=== PATIENT | male | born 1985 | race Caucasian/White ===

== ENCOUNTER 2017-05-31 08:52 | Day surgery (SDC) | payer BC ==
[~2017-05-31 08:52] MED LIST: Acetaminophen/HYDROcodone 325-10 MG Tab PO PRN; Bupivacaine 0.25% 10 ML SDV ONE; Ketorolac 10 MG Tab PO PRN; Lactated Ringers 1,000 ML IV SCH; ceFAZolin 2 GM in Premix Bag 1 BAG IV SCH
[2017-05-31] MEDS ORDERED: Ketorolac 30 MG/ML SDV ONE ×2 (09:16→09:19)
[2017-05-31] MEDS ORDERED: Propofol 200 MG/20 ML SDV ONE ×3 (09:18→13:55)
[2017-05-31] MEDS ORDERED: Midazolam 1 MG/ML 2 ML SDV ONE (09:18)
[2017-05-31] MEDS ORDERED: Lidocaine 2% 5 ML SDV ONE (09:18)
[2017-05-31] MEDS ORDERED: fentaNYL 100 MCG/2 ML SDV ONE (09:18)
[2017-05-31] MEDS ORDERED: Ondansetron 4 MG/2 ML SDV ONE (09:19)
[2017-05-31] MEDS ORDERED: HYDROmorphone 2 MG/ML Syringe ONE (09:27)
--- NOTE | 2017-05-31 09:49 | PCM.PREANE ---
Preanesthetic Assessment - Anesthesia/Transfusion/Family Hx Anesthesia History: Prior Anesthesia Without Reaction Family History of Anesthesia Reaction: No Transfusion History: No Prior Transfusion(s) - Review of Systems General: No Symptoms Pulmonary: No Symptoms Cardiovascular: No Symptoms Gastrointestinal: No Symptoms Neurological: No Symptoms Other: Reports: None - Physical Assessment O2 Sat by Pulse Oximetry: 98 Respiratory Rate: 16 Vital Signs: Last Vital Signs Temp 36.4 C 05/31/17 09:14 Pulse 48 L 05/31/17 09:14 Resp 16 05/31/17 09:14 BP 118/69 05/31/17 09:14 Pulse Ox 98 05/31/17 09:14 Height: 1.73 m Weight: 85.275 kg ASA Class: 1 Mental Status: Alert & Oriented x3 Airway Class: Mallampati = 1 Dentition: Reports: Normal Dentition ROM/Head Extension: Full Lungs: Clear to Auscultation, Normal Respiratory Effort Cardiovascular: Regular Rate, Regular Rhythm - Allergies Allergies/Adverse Reactions: Allergies Allergy/AdvReac Type Severity Reaction Status Date / Time No Known Allergies Allergy Verified 05/26/17 14:02 - Anesthesia Plan Pre-Op Medication Ordered: None - Acknowledgements Anesthesia Type Planned: General Anesthesia Pt an Appropriate Candidate for the Planned Anesthesia: Yes Alternatives and Risks of Anesthesia Discussed w Pt/Guardian: Yes Pt/Guardian Understands and Agrees with Anesthesia Plan: Yes Additional Comments: options of spinal with sedation and GA discussed with patient. Pt prefers GA. PreAnesthesia Questionnaire HEENT History: Reports: None Musculoskeletal History: Reports: Fracture Other Musculoskeletal History: hx of fx fingers - Past Surgical History Head Surgeries/Procedures: Reports: None HEENT Surgical History: Reports: Tonsillectomy Musculoskeletal Surgical History: Reports: Arthroscopic Knee Other Musculoskeletal Surgeries/Procedures:: right ACL repair - SUBSTANCE USE Smoking Status *Q: Never Smoker Recreational Drug Use History: No - HOME MEDS Home Medications: Home Meds . [No Known Home Meds] 05/25/17 [History] - CURRENT (IN HOUSE) MEDS Current Meds: Current Medications Hydrocodone Bitart/Acetaminophen (Remus 325-10 Mg) 1 - 2 tab PO Q4H PRN PRN Reason: Pain Lactated Ringer's (Ringers, Lactated) 1,000 mls @ 100 mls/hr IV ASDIRECTED [facility] Last Admin: 05/31/17 09:18 Dose: 100 mls/hr Cefazolin Sodium/Dextrose 2 gm (/ Premix) 50 mls @ 100 mls/hr IV ONCALL [facility] Ketorolac Tromethamine (Toradol) 10 mg PO Q6H PRN PRN Reason: Pain Stop: 06/05/17 08:01 Discontinued Medications Bupivacaine HCl (Sensorcaine-Mpf 0.25%) Confirm Administered Dose 10 ml .ROUTE .STK-MED ONE Stop: 05/31/17 07:47 Fentanyl (Sublimaze) Confirm Administered Dose 300 mcg .ROUTE .STK-MED ONE Stop: 05/31/17 09:19 Hydromorphone HCl (Dilaudid) Confirm Administered Dose 2 mg .ROUTE .STK-MED ONE Stop: 05/31/17 09:28 Ketorolac Tromethamine (Toradol) Confirm Administered Dose 30 mg .ROUTE .STK- MED ONE Stop: 05/31/17 09:17 Ketorolac Tromethamine (Toradol) Confirm Administered Dose 30 mg .ROUTE .STK- MED ONE Stop: 05/31/17 09:20 Lidocaine (Xylocaine-Mpf 2%) Confirm Administered Dose 10 ml .ROUTE .STK-MED ONE Stop: 05/31/17 09:19 Midazolam HCl (Versed 1 Mg/Ml) Confirm Administered Dose 2 mg .ROUTE .STK-MED ONE Stop: 05/31/17 09:19 Ondansetron HCl (Zofran) Confirm Administered Dose 4 mg .ROUTE .STK-MED ONE Stop: 05/31/17 09:20 Propofol (Diprivan 20 Ml) Confirm Administered Dose 400 mg .ROUTE .STK-MED ONE Stop: 05/31/17 09:19
--- NOTE | 2017-05-31 10:14 | PCM.POSTAN ---
POST ANESTHESIA ASSESSMENT - MENTAL STATUS Mental Status: Alert, Oriented Free Text/Narrative:: Awakens to verbal but drifts back to sleep - VITAL SIGNS Pulse Rate: 48 SaO2: 98 Resp Rate: 16 Blood Pressure: 118/69 - RESPIRATORY Respiratory Status: Respiratory Rate WNL, Airway Patent, O2 Saturation Stable - CARDIOVASCULAR CV Status: Pulse Rate WNL, Blood Pressure Stable - GASTROINTESTINAL GI Status: No Symptoms - PAIN Pain Score: 0 - POST OP HYDRATION Hydration Status: Adequate & Stable
[2017-05-31] MEDS ORDERED: HYDROmorphone 2 MG/ML Syringe IVPUSH ONE (13:06)
[2017-05-31] MEDS ORDERED: fentaNYL 100 MCG/2 ML SDV IVPUSH PRN (13:06)
--- NOTE | 2017-05-31 13:40 | PCM.OPNOTE ---
- General Post-Op/Procedure Note Date of Surgery/Procedure: 05/31/17 Operative Procedure(s): L knee arthroscopy with medial meniscus repair and ACL reconstruction using allograft Post-Op Diagnosis: L knee medial meniscus tear, L knee ACL tear Anesthesia Technique: General ET Tube Primary Surgeon: Maxine Vitale Communications Assistant: Anita Clemens in mLs: 10 Condition: Good Free Text/Narrative:: tt=[id number] min #[id number]
[2017-05-31] MEDS ORDERED: Lidocaine 1% 20 ML MDV ONE (13:59)
[2017-05-31] MEDS ORDERED: Meperidine PF 50 MG/ML Syringe IVPUSH ONE (14:22)
[2017-05-31] MEDS ORDERED: Meperidine PF 50 MG/ML Syringe ONE (14:22)
--- NOTE | 2017-05-31 14:57 | PCM.POSTAN ---
POST ANESTHESIA ASSESSMENT - MENTAL STATUS Mental Status: Alert, Oriented - RESPIRATORY Respiratory Status: Respiratory Rate WNL, Airway Patent, O2 Saturation Stable - CARDIOVASCULAR CV Status: Pulse Rate WNL, Blood Pressure Stable - GASTROINTESTINAL GI Status: No Symptoms - PAIN Pain Score: 3 - POST OP HYDRATION Hydration Status: Adequate & Stable - OBSERVATIONS Free Text/Narrative:: no anesthesia problems
[2017-05-31 15:33] VITALS: BP 116/62
--- NOTE | 2017-05-31 15:53 | OR ---
SURGEON: Maxine Vitale MD DATE OF PROCEDURE: 05/31/2017 PREOPERATIVE DIAGNOSES: 1. Left knee medial meniscus tear. 2. Left knee anterior cruciate ligament tear. POSTOPERATIVE DIAGNOSES: 1. Left knee medial meniscus tear. 2. Left knee anterior cruciate ligament tear. PROCEDURES: Left knee arthroscopy with: 1. Medial meniscus repair. 2. Arthroscopically aided anterior cruciate ligament reconstruction using allograft. COMMUNITY FUNDRAISER: Anita Clemens PA-C. ANESTHESIA: General. ESTIMATED BLOOD LOSS: 10 mL. TOURNIQUET TIME: COMPLICATIONS: None. DVT PROPHYLAXIS: PAS boot to the nonoperative leg. IMPLANTS USED: [employer] FirstPass meniscal repair and [employer] TightRope ACL fixation system. BRIEF HISTORY: Jacobo is a 31-year-old male, who sustained an injury to his left knee. An MRI did confirm a tear of the ACL and medial meniscus. I discussed both surgical and conservative treatment options with the patient. He elected to proceed with surgical treatment. The risks and goals of procedure were discussed with the patient and were documented preoperatively. He agreed to proceed. DESCRIPTION OF PROCEDURE: The patient was properly identified and brought to the operating room. He was transferred from the OR cart and placed on the operating room table in supine position. General anesthesia was administered. After adequate anesthesia was obtained, a well-padded tourniquet was applied to the left lower extremity. The left lower extremity was then prepped in standard fashion using ChloraPrep solution. It was then sterilely draped. A time-out was performed to ensure correct site and procedure. Preoperative antibiotics were given. The surgical site had been marked preoperatively. An Esmarch was used to exsanguinate the left lower extremity and the tourniquet was inflated to 250 mmHg. Anterior drawer and pivot-shift test were both positive. A lateral portal arthrotomy was established. Blunt trocar and cannula were introduced into the suprapatellar pouch. Camera, inflow, and outflow were assembled. No significant synovitis was noted. The patellofemoral joint was inspected. The joint surfaces appeared pristine. The patella appeared to track centrally. I then extended down the lateral and medial gutter. No loose bodies were identified. I then entered the medial compartment. A medial portal arthrotomy was established. A probe was then inserted. The meniscus was probed. He was found to have a small full-thickness tear through the posterior horn of the medial meniscus. This appeared unstable. This was in the red-white zone. The edges appeared smooth and I elected to proceed with meniscus repair. A meniscal rasp was then used to roughen the edges. The [employer] FirstPass suture repair system was then utilized. Two passes were made into the repair and the knot was cinched down. The suture did break. I used a meniscal biter to cut the suture and this removed the remainder of the stitch without difficulty. The meniscus was then probed and was found to be stable. The joint surfaces on the medial compartment showed no signs of degenerative findings. I then entered the notch. The ACL was visualized. This appeared to be scarred to the PCL. There was no attachment to the lateral femoral condyle. The PCL appeared intact. I then entered the lateral compartment. 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 The meniscus was probed and found to be stable. No tears were appreciated. The lateral femoral condyle showed no significant degenerative findings. I then turned my attention back to the ACL. A portion that was scarred to the PCL was resected. I did keep the insertion point intact to allow for proprioception. The lateral condyle wall was then cleared of soft tissue. A afia was used to perform a small notchplasty to assist with visualization. A large curette was used posteriorly to confirm that we were posterior enough. We choose to make our tibial tunnel first. The tibial positioning guide was placed. An incision was made over the medial aspect of the tibia and the subcutaneous tissues were dissected down to the bone. Periosteal window was elevated. Once we felt we had adequate tunnel length and placement, a guide pin was inserted. This came out just even with the anterior horn of the lateral meniscus and was approximately 7 mm anterior to the PCL. I felt that this was acceptable placement. The graft had been prepared in a standard fashion preoperatively. This did measure 10 mm in the tibial portion and 9.5 mm in the femoral portion. A 10 mm reamer was then placed over the guide pin and the tibial tunnel was removed without difficulty. A shaver was then used to remove any loose fragments of bone. A rasp was also used to smooth the posterior edge of the tibial tunnel. A plug was then placed to prevent extravasation of the fluid from the joint. I then turned my attention to the lateral femoral condyle. We elected to use the tibial FlipCutter for placement of the femoral tunnel. This was placed in a posterior and inferior position on the lateral femoral condyle. Small incision was then made along the lateral aspect of the distal femur. The iliotibial band was also dissected. The femoral guide was then placed next to the bone and the FlipCutter was inserted into the joint. It was felt that we had adequate position of the guide pin. The FlipCutter was then deployed and 30 mm of tunnel was created. The FlipCutter was then removed as the guide was kept in place. The retrieval suture was then passed through the femur out the tibial tunnel for passage of the graft. The graft was then passed through the tibial tunnel, up through the femoral tunnel. The TightRope button was identified. This was passed back through the iliotibial band until it was next to the femur. C-arm was used to confirm that the button had been deployed and flipped appropriately. The graft was then docked into the femur. The position of the graft was checked. Traction was held on the tibial sutures, as the knee was taken through a range of motion. There did not appear to be any impingement. The knee was then held in and extended position. The TightRope button was then placed onto the sutures and this was cinched into place without difficulty until it was flush with the bone. The knee was taken through a range of motion. I was able to get him to 90 degrees without difficulty. He had a negative Liz exam. The sutures were then tied in place. The tourniquet was then deflated. The fascial layer was closed over the hardware with 0 Vicryl. The subcutaneous tissues were closed with 2-0 Vicryl and the skin was closed with a running Monocryl suture on the tibia, 3-0 nylon was also used for the portal sites. Xeroform gauze was placed over the wound and a bulky dressing was applied. He was placed in a hinged knee brace locked in full extension. He was awakened from his anesthetic and transferred back to the operating room cart. He was brought to recovery room in stable condition. All needle and sponge counts were correct. MAYELA / JADON /[id number]
--- NOTE | 2017-05-31 16:25 | CR ---
EXAMINATION: Left knee HISTORY: ACL repair COMPARISON: 04/01/2017 TECHNIQUE: Single view FINDINGS/IMPRESSION: A single postoperative control film demonstrates postsurgical changes secondary to ACL repair.
== END 2017-05-31 15:59 | disposition home or self-care (01) ==
LOC: MW.SDS 08:52
PROVIDERS: ATTEND Orthopaedic Surgery
DX: S83.242A Other tear of medial meniscus, current injury, left knee, initial encounter (principal); S83.512A Sprain of anterior cruciate ligament of left knee, initial encounter; M94.262 Chondromalacia, left knee; Z90.89 Acquired absence of other organs; Z98.890 Other specified postprocedural states
CPT/HCPCS: 29882; 29888; 76000; C1762; C1776; J0690; J1170; J1885; J2175; J2250; J2405; J3010; J7120; 01400; 88304; J2704